=== PATIENT | male | born 2000 ===

== ENCOUNTER 2019-12-28 20:10 | Emergency (ER) | payer OTHER ==
[2019-12-28] MEDS ORDERED: Ibuprofen 200 MG TAB ONE (20:35)
[2019-12-28] MEDS ORDERED: Acetaminophen 500 MG TAB ONE (20:35)
--- NOTE | 2019-12-28 20:40 | RAD ---
Chest AP view INDICATION: Chest pain with history of Covid positive testing COMPARISON: None FINDINGS: Lungs: The lungs are clear Cardiac silhouette: The cardiomediastinal silhouette appears within normal limits. Pulmonary vasculature: Normal Pleural spaces: No pleural effusion or pneumothorax is demonstrated. Upper abdomen: No abnormality seen. Osseous structures: No acute osseous abnormality. Additional findings: None. IMPRESSION: No acute cardiopulmonary abnormality.
== END 2019-12-28 21:20 | disposition home or self-care (01) ==
LOC: ERS 20:10
DX: U07.1 COVID-19 (principal); R06.00 Dyspnea, unspecified; F41.9 Anxiety disorder, unspecified
CPT/HCPCS: 71045; 93005